=== PATIENT | male | born 1935 | race Caucasian/White ===

== ENCOUNTER 2016-06-16 13:01 | Outpatient (CLI) | payer MEDICARE, OTHER | END 2016-06-16 13:02 | disposition home or self-care (01) | DX: G47.33 Obstructive sleep apnea (adult) (pediatric) (principal) | CPT/HCPCS: 99213; G0463 ==

== ENCOUNTER 2016-12-23 18:25 | Emergency (ER) | payer MEDICARE, OTHER ==
[2016-12-23] MEDS: diphenhydrAMINE INJ 50 MG/ML VIAL IM STA (21:35)
[2016-12-23] MEDS ORDERED: diphenhydrAMINE INJ 50 MG/ML VIAL ONE (21:36)
--- NOTE | 2016-12-23 21:37 | ED Physician Documentation ---
PD HPI SKIN - Stated complaint Stated Complaint: JEREMIE HAND ITCH/SWELLING - Chief complaint Chief Complaint: Ext Problem - History obtained from History obtained from: Patient - History of Present Illness Timing - onset: How many days ago (7) Timing - details: Gradual onset, Still present Location: LUE, RLE Quality / character: Itchy, Raised, Vesicular Associated symptoms: No: Fever Similar symptoms before: Has not had sx before Recently seen: Not recently seen - Additional information Additional information: Patient is an 81 year old male presenting to the emergency department for bilateral puritic hand rash. Patient states that the symptoms have been going on for almost a week. patient states that he does work outside a lot but does not know what started the rash. patient states that he has follow up tomorrow but he came in today because the itching was so bad that he could not sleep. Review of Systems Constitutional: denies: Fever, Chills Eyes: denies: Discharge, Irritation Ears: denies: Ear pain Nose: denies: Rhinorrhea / runny nose, Congestion GI: denies: Abdominal Pain, Nausea, Vomiting Skin: reports: Rash Musculoskeletal: reports: Extremity swelling Neurologic: denies: Generalized weakness, Focal weakness, Numbness Immunocompromised: denies: Immunocompromised PD PAST MEDICAL HISTORY - Past Medical History Past Medical History: Yes Respiratory: CPAP use Neuro: Peripheral neuropathy - Past Surgical History Past Surgical History: No - Present Medications Home Medications: Ambulatory Orders Medication Instructions Recorded Confirmed Gabapentin 300 mg PO DAILY 12/23/16 12/23/16 - Allergies Allergies/Adverse Reactions: Allergies Allergy/AdvReac Type Severity Reaction Status Date / Time No Known Drug Allergies Allergy Verified 12/23/16 18:30 - Social History Does the pt smoke?: No Smoking Status: Never smoker Does the pt drink ETOH?: No Does the pt have substance abuse?: No - Immunizations Immunizations are current?: Yes - POLST Patient has POLST: No PD ED PE NORMAL - Vitals Vital signs reviewed: Yes - General General: Alert and oriented X 3, No acute distress - HEENT HEENT: Atraumatic, PERRL - Neck Neck: Supple, no meningeal sign - Cardiac Cardiac: RRR, No murmur - Respiratory Respiratory: No respiratory distress - Abdomen Abdomen: Soft - Extremities Extremities: Normal ROM s pain, No edema - Neuro Neuro: Alert and oriented X 3, No motor deficit, No sensory deficit, Normal speech - Psych Psych: Normal mood, Normal affect PD ED PE EXPANDED - Derm Derm: Rash, Papules, Vesicles (vesicles and papules on bilateral hands, no superimposed infection) Results - Vitals Vitals: Vital Signs - 24 hr 12/23/16 12/23/16 18:27 21:49 Temperature 36.8 C 36.4 C L Heart Rate 75 74 Respiratory 16 18 Rate Blood Pressure 153/85 H 148/90 H O2 Saturation 95 93 Oxygen O2 Source Room air PD MEDICAL DECISION MAKING - ED course Complexity details: reviewed old records, reviewed results, considered differential, d/w patient, d/w family ED course: Patient was seen and examined at bedside. a sample was taken from one of the lesions. Patient was treated with benadryl. Patient had follow up the next day and was stable for discharge with outpatient follow up. Departure - Departure Disposition: 01 Home, Self Care Clinical Impression: Dermatitis Condition: Good Instructions: Contact Dermatitis Follow-Up: primary,care provider [Other] - Tomorrow Comments: You should take benadryl as needed for the itching, you can also ice the hands as well. You should go to your appointment tomorrow for re-evaluation. You can return to the emergency department at any time if needed for new, worsening or uncontrollable symptoms. Discharge Date/Time: 12/23/16 21:49
[2016-12-23 21:51] VITALS: BP 148/90
== END 2016-12-23 21:49 | disposition home or self-care (01) ==
LOC: ED 18:25
DX: L30.9 Dermatitis, unspecified (principal); G62.9 Polyneuropathy, unspecified
CPT/HCPCS: 96372; 99283

== ENCOUNTER 2017-09-24 13:11 | Outpatient (CLI) | payer MEDICARE, OTHER | END 2017-09-24 13:12 | disposition home or self-care (01) | LOC: SC 13:11 | PROVIDERS: ATTEND Nurse Practitioner Family | DX: G47.33 Obstructive sleep apnea (adult) (pediatric) (principal) | CPT/HCPCS: 99213; G0463; 99212 ==

== ENCOUNTER 2018-10-05 13:40 | Outpatient (CLI) | payer MEDICARE, OTHER | END 2018-10-05 13:41 | disposition home or self-care (01) | LOC: SC 13:40 | PROVIDERS: ATTEND Nurse Practitioner Family | DX: G47.33 Obstructive sleep apnea (adult) (pediatric) (principal) | CPT/HCPCS: 99214; G0463; 99212 ==

== ENCOUNTER 2018-10-06 12:54 | Outpatient (CLI) | payer MEDICARE, OTHER ==
--- NOTE | 2018-10-06 15:56 | CT Report ---
Reason: INTERSTITIAL PULMONARY DISEASE, UNSPECIFIED Procedure Date: 10/06/2018 Accession Number: [id number] / [id number] Procedure: CT - CHEST WO CPT Code: FULL RESULT: EXAM: CT CHEST WITHOUT CONTRAST. EXAM DATE: 10/06/2018 02:05 PM. CLINICAL HISTORY: Interstitial pulmonary disease, unspecified. COMPARISONS: None. TECHNIQUE: Routine helical CT imaging was performed through the chest. IV contrast: None. Reconstructions: Coronal and sagittal. In accordance with CT protocol optimization, one or more of the following dose reduction techniques were utilized for this exam: automated exposure control, adjustment of mA and/or KV based on patient size, or use of iterative reconstructive technique. FINDINGS: Lungs/Pleura: There is peripheral basilar distribution of subpleural reticular interstitial thickening with traction bronchiectasis. A few patchy areas of consolidation also noted predominantly in the lower portion of the right upper lobe and lingula. Pleural thickening is seen near the fissures. There is no associated calcified pleural plaquing. No pleural effusion or pneumothorax. Mediastinum: The esophagus appears unremarkable. No adenopathy or masses. The heart and great vessels are normal. Bones: Unremarkable. Visualized Abdomen: Unremarkable. Other: None. IMPRESSION: Lower lung predominant peripheral interstitial thickening with traction bronchiectasis and some pleural thickening without consolidation. This pattern is nonspecific but overall compatible with the usual interstitial pneumonitis pattern. The differential diagnosis of which includes drug toxicity, rheumatoid arthritis, idiopathic pulmonary fibrosis, in this case etiologies such as asbestos exposure, Sjogren's syndrome and cryptogenic organizing pneumonia are felt somewhat less likely as pathognomonic features such as calcifications of the pleura, patulous esophagus and prominent consolidation respectively are absent. RADIA
[2018-10-06 16:08] LABS: RHEUMATOID FACTOR NEGATIVE (Negative)
[2018-10-08 11:46] LABS: DNA (DS) ANTIBODY 1 IU/mL
[2018-10-08 17:27] LABS: COMPLEMENT COMPONENT C3C 157 mg/dL; COMPLEMENT COMPONENT C4C 28 mg/dL
== END 2018-10-06 12:55 | disposition home or self-care (01) ==
LOC: DI 12:54
PROVIDERS: ATTEND Internal Medicine
DX: J84.9 Interstitial pulmonary disease, unspecified (principal); J47.9 Bronchiectasis, uncomplicated
CPT/HCPCS: 36415; 71250; 81599; 86160; 86200; 86225; 86430

== ENCOUNTER 2019-12-29 09:00 | Outpatient (CLI) | payer MEDICARE, OTHER | END 2019-12-29 09:01 | disposition home or self-care (01) | LOC: DI 09:00 | PROVIDERS: ATTEND Internal Medicine | DX: J84.9 Interstitial pulmonary disease, unspecified (principal) | CPT/HCPCS: 93306 ==

== ENCOUNTER 2020-01-11 13:05 | Outpatient (CLI) | payer MEDICARE, OTHER ==
[2020-01-11] MEDS ORDERED: ALBUTEROL 1 PUFF INH STA (15:47)
== END 2020-01-11 13:06 | disposition home or self-care (01) ==
LOC: RT 13:05
PROVIDERS: ATTEND Internal Medicine
DX: J84.9 Interstitial pulmonary disease, unspecified (principal)

== ENCOUNTER 2024-07-04 19:17 | Inpatient (IN) ==
--- NOTE | 2024-07-04 19:23 | ED Physician Documentation ---
PD HPI SYNCOPE Stated complaint Stated Complaint: SYNCOPE Chief complaint Chief Complaint: Cardiac Additional information Additional information: 88-year-old male has been here a couple times recently for increased shortness of breath and increased work of breathing. Last time he was here he was told he most likely has CHF that has been unofficially diagnosed he has got known cardiomegaly he was given IV Lasix prior to discharge. He is brought in via EMS for syncopal episode that happened while walking back from bathroom without oxygen. Is unclear if he was with or without oxygen when EMS arrived and he found him on 58% on room air. He has been on 10 to 20 L of supplemental oxygen at home. Patient does appear to be altered here in emergency department he is unable to tell me if he is having chest pain or shortness of breath. He was told to follow-up with PCP and cardiology outpatient for further evaluation at last ER admission. Patient's eventually came as well as his daughter his was there she says overall since patient has been home he has been doing worse he had an appoint with Dr. Márquez via telephone today Dr. Márquez was not able to evaluate him as it is very difficult to get patient in for appointments apparently he was started on Lasix today it does not like they have picked this up. It does sound like patient was actually on his oxygen at home but he has been requiring more oxygen than his normal baseline especially with ambulation and it is unclear how much oxygen he was on when he syncopized with oxygen on in his chair. said that he lost consciousness with his eyes open rolling behind his head for sever al seconds if not minutes patient says he has no recollection of this and no recollection of even going to the bathroom. [place] Coma Scale Assess Eye opening: Spontaneous Verbal response: Confused Motor response: Obeys Commands Total score: 14 Meds/Allgy Home Medications Ambulatory Orders Medication Instructions Recorded Confirmed gabapentin 300 mg capsule 300 mg PO DAILY 12/23/16 06/13/24 pirfenidone 267 mg capsule 267 mg PO DAILY 06/13/24 06/13/24 Allergies Allergies Allergy/AdvReac Type Severity Reaction Status Date / Time No Known Drug Allergies Allergy Verified 07/04/24 19:33 [facility] Medical History Medical History (Updated 07/04/24 @ 21:21 by Soham Sheppard DNP) History of cardiac murmur History of pulmonary fibrosis Social History Social History Smoking Status: Never smoker Relationship: Do you feel safe in your home environment?: Yes Suffered physical, verbal, emotional, or financial abuse?: No History of Abuse: No POLST Patient has POLST: No Exam Constitutional abnormal general appearance (disheveled), (chronically ill), (lethargic), (appears older than stated age) and (frail appearing), no apparent distress, abnormal body habitus (overweight), limitations noted (altered mental status) and alert HENMT normocephalic and head/scalp atraumatic Eyes PERRL Chest inspection of chest normal Respiratory Diminished breath sounds throughout. Cardiovascular normal heart rate noted and edema noted (3+ bilateral pitting edema to the nat ateral lower extremities) Diminished heart sounds Gastrointestinal abdomen normal to inspection Genitourinary no CVA tenderness Neurology no movement abnormality noted, no focal motor deficit noted, speech normal, coordination normal and no pronator drift noted Skin skin color normal and no rash Results Vitals Vitals: Vital Signs - 24 hr 07/04/24 19:29 07/04/24 19:29 07/04/24 19:33 Temperature 36.6 C Temperature Source Temporal Artery Scan Pulse Rate 63 Respiratory Rate 20 Blood Pressure 120/67 O2 Saturation 58 L Oxygen Delivery Method Nasal Cannula Non-Rebreather O2 Source Room air Oxygen Flow Rate 6 If not protocol: Oxygen Flow, liters/minute 10 Pain Intensity 0 07/04/24 19:36 07/04/24 19:50 07/04/24 20:03 Temperature Temperature Source Pulse Rate 79 80 Respiratory Rate 20 22 Blood Pressure 120/67 119/66 O2 Saturation 92 98 Oxygen Delivery Method O2 Source Nasal cannula Nasal cannula Oxygen Flow Rate If not protocol: Oxygen Flow, liters/minute 6 20 6 Pain Intensity 0 0 07/04/24 20:03 07/04/24 21:21 Temperature Temperature Source Pulse Rate 80 81 Respiratory Rate 26 H 24 Blood Pressure 119/66 115/61 O2 Saturation 99 96 Oxygen Delivery Method O2 Source HHFNC Venturi mask Oxygen Flow Rate If not protocol: Oxygen Flow, liters/minute 20 6 Pain Intensity 0 Oxygen O2 Source Venturi mask Oxygen Flow Rate 6 EKG (time done) 1921: EKG releavant findings:: EKG personally interpreted by author of this note. Relevant findings are: Rate: Rate (enter#) (79) Rhythm: Atrial flutter (With varied AV block) Chalmers: Normal QRS: RBBB Ischemia: Normal ST segments Compare to prior EKG: Unchanged from prior EKG Computer interpretation: Agree with computer Labs Labs: Laboratory Tests 07/04/24 07/04/24 19:30 19:36 WBC 11.0 H RBC 3.85 L Hgb 12.2 L Hct 41.5 L MCV 107.8 H MCH 31.7 H MCHC 29.4 L RDW 14.6 Plt Count 216 MPV 11.1 Neut # (Auto) 5.3 Lymph # (Auto) 4.6 H Boundary # (Auto) 0.7 Eos # (Auto) 0.4 Baso # (Auto) 0.0 Absolute Nucleated RBC 0.00 Nucleated RBC % 0.0 PT 15.4 H INR 1.4 H VBG pH 7.313 VBG pCO2 74.8 H VBG pO2 34.0 VBG HCO3 38.3 H VBG Total CO2 40.6 H VBG O2 Saturation 51.0 L VBG Base Excess 11.9 H Sodium 145 Potassium 4.3 Chloride 103 Carbon Dioxide 35 H Anion Gap 7.0 BUN 23 H Creatinine 1.2 Estimated GFR (MDRD) 57 L Glucose 186 H Calcium 9.3 Total Bilirubin 0.5 AST 16 ALT 14 Alkaline Phosphatase 75 Troponin I High Sens 30.3 H* B-Natriuretic Peptide 260 H Total Protein 6.1 L Albumin 3.8 Globulin 2.3 Albumin/Globulin Ratio 1.7 Lipase 16 Rads (name of study) Chest x-ray: Relevant Findings:: Final report received and EMP independent i nterpretation of test Interpretation: IMPRESSION: Compared to prior radiograph 06/28/2024, increased bilateral lung disease. Small bilateral pleural effusions persist. CT angio chest: Relevant Findings:: Final report received and EMP independent interpretation of test Interpretation: IMPRESSION: 1.No CT evidence of pulmonary embolism to the interlobar level. 2.Pulmonary findings, which can be seen with pulmonary fibrosis-usual i nterstitial pneumonia pattern. The presence of thoracic lymphadenopathy suggests underlying viral/atypical pneumonia. 3.Cardiomegaly with CT signs of right heart strain. 4.Dilated main pulmonary artery, suggestive of pulmonary arterial hypertension. 5.Small bilateral pleural effusions. PD Medical Decision Making ED course Complexity details: reviewed old records, reviewed results, re-evaluated patient, d/w patient, d/w family and d/w client service consultant ED course: 88-year-old male presents emerged department via EMS for acute hypoxia and respiratory failure. Differentials include but not limited to, worsening pulmonary fibrosis, pulmonary embolism, pneumonia, worsening CHF exacerbation. Labs are complete for further evaluation mild leukocytosis, WBC 11.0 BUN slightly elevated 23, GFR 57, troponin slightly elevated at 30.3 no history of troponins collected in the past this is most likely related to demand ischemia patient does not have any chest pain although he does endorse an ongoing shortness of breath. BNP trending down to 260. Chest x-ray was complete and reveals increased bilateral lung disease with small bilateral pleural effusions. To rule out the possibility of a pulmonary embolism and a CT angio chest was also complete for further evaluation no PE vi sualized he does appear to have ongoing cardiomegaly with CT signs of right heart strain, dilated main pulmonary artery suggestive of pulmonary arterial hypertension, small bilateral pleural effusions and pulmonary findings likely related to pulmonary fibrosis with typical interstitial pneumonia pattern there is also presence of thoracic lymphadenopathy suggestive of underlying atypical pneumonia versus viral pneumonia. He is afebrile here. I spoke in great length with patient's daughter and as well as the patient about the findings of the CT and concerns for worsening heart failure. At this point in time patient is unable to make his pulmonology appointments in [place] Due to his increased oxygen needs. Family says that with his worsening heart failure they do not believe that patient will make any of his cardiology outpatient appointments for further evaluation and workup. We talked about possibly transferring patient to another hospital where there is cardiology available but they said that they would do not want to leave and they are not interested in a cardiology referral at this point in time they are hoping to just try and get some fluid off of his lungs if there is some pneumonia possibly treating for this getting patient stabilized. Patient patient's family would like to avoid transfer at all cost and understand staying here that we do not have cardiology. Spoke with on-call hospitalist, Jaret Mukherjee who understands patient is not wanting or willing to be transferred lives with daughter. Plan is to admit patient for diuresis possible pneumonia waiting for procalcitonin levels to get back And possible echocardiogram. Discharge Plan Discharge Patient Disposition: 66 [facility] DC/Xfer Condition: Fair Clinical Impression: Syncopal episodes, CHF (congestive heart failure), Pulmonary fibrosis, Pleural effusion Prescriptions: No Action gabapentin 300 MG capsule 300 mg PO DAILY pirfenidone 267 mg capsule 267 mg PO DAILY Print Language: Khmer
[2024-07-04] MEDS ORDERED: iohexoL-300 100 ML VIAL ONE (19:34)
[2024-07-04 19:40] LABS: BASOPHILS % (AUTO) 0.3 %; EOSINOPHILS # (AUTO) 0.4 10^3/uL (0.0-0.7); EOSINOPHILS % (AUTO) 3.2 %; HCT - HEMATOCRIT 41.5 % (42.0-52.0); HGB - HEMOGLOBIN 12.2 g/dL (14.0-18.0); LYMPHOCYTES # (AUTO) 4.6 10^3/uL (1.5-3.5); LYMPHOCYTES % (AUTO) 42.1 %; MEAN CORPUSCULAR HEMOGLOBIN 31.7 pg (27.0-31.0); MEAN CORPUSCULAR HGB CONC 29.4 g/dL (32.0-36.0); MEAN CORPUSCULAR VOLUME 107.8 fL (80.0-94.0); MEAN PLATELET VOLUME 11.1 fL (7.4-11.4); MONOCYTES # (AUTO) 0.7 10^3/uL (0.0-1.0); MONOCYTES % (AUTO) 6.3 %; NEUTROPHILS # (AUTO) 5.3 10^3/uL (1.5-6.6); NEUTROPHILS % (AUTO) 47.7 %; PLT - PLATELET COUNT 216 10^3/uL (130-450); RED BLOOD COUNT 3.85 10^6/uL (4.70-6.10); RED CELL DISTRIBUTION WIDTH 14.6 % (12.0-15.0)
[2024-07-04 19:42] LABS: VBG BASE EXCESS 11.9 mmol/L (-2 - +2); VBG PCO2 74.8 mmHg (41-51); VBG PH 7.313 (7.31-7.41); VBG TOTAL CO2 40.6 mmol/L (24-29)
[2024-07-04 19:46] LABS: INR 1.4 (0.8-1.2); PT - PROTHROMBIN TIME 15.4 secs (9.9-12.6)
--- NOTE | 2024-07-04 19:51 | XRAY Report ---
PROCEDURE: XR Chest 1V INDICATIONS: Chest Pain TECHNIQUE: One view of the chest was acquired. COMPARISON: Chest radiograph 06/28/2024, 1 presents with a left. FINDINGS: Surgical changes and devices: None. Lungs and pleura: No pneumothorax. Small bilateral pleural effusions. Compared to prior radiograph , there is slightly increased diffuse lung disease. Mediastinum: Mediastinal contours appear normal. Heart size is normal. Bones and chest wall: No suspicious bony lesions. Overlying soft tissues appear unremarkable. IMPRESSION: Compared to prior radiograph 06/28/2024, increased bilateral lung disease. Small bilateral pleural eff usions persist. Reviewed by: Trina Fernandes MD, PhD on 07/04/2024 7:50 PM PST Approved by: Trina Fernandes MD, PhD on 07/04/2024 7:50 PM PST Station ID: [id number]
[2024-07-04 20:01] LABS: ALBUMIN 3.8 g/dL (3.2-5.5); ALBUMIN/GLOBULIN RATIO 1.7 (1.0-2.2); BILIRUBIN,TOTAL 0.5 mg/dL (0.2-1.0); CALCIUM 9.3 mg/dL (8.5-10.3); CREATININE 1.2 mg/dL (0.6-1.3); POTASSIUM 4.3 mmol/L (3.5-4.5); TOTAL PROTEIN 6.1 g/dL (6.4-8.9)
[2024-07-04] MEDS: FUROSEMIDE 40 MG/4 ML VIAL IVP STA (20:12)
[2024-07-04] MEDS: iohexoL-300 100 ML VIAL IVP ONE (20:39)
--- NOTE | 2024-07-04 20:59 | CT Report ---
PROCEDURE: CT Angio Chest INDICATIONS: hypoxic, syncope CONTRAST: 80 ML OMNI TECHNIQUE: After the administration of intravenous contrast, 2 mm axial images were acquired from the pulmonary apices to the posterior costophrenic angles during the arterial phase. In addition, 1 mm lung kernel and 5 mm soft tissue kernel reconstructions were performed. 3-dimensional coronal oblique maximum int ensity projection (MIP) reformats, 8 mm axial MIP, and 5 mm coronal and sagittal MPR reformats were t hen performed through the thorax. For radiation dose reduction, the following was used: automated exp osure control, adjustment of mA and/or kV according to patient size. COMPARISON: Chest x-ray 06/28/2024, CT chest without contrast 10/06/2018 FINDINGS: Image quality: Excellent. Thyroid Gland: Within normal limits. Cardiac: Mild cardiomegaly. No pericardial effusion. RV: LV ratio of 1.3. Mild bowing of the interven tricular septum. Reflux of contrast into the proximal hepatic veins. Aorta: Thoracic aortic diameter within normal limits at 3.0 cm (4/61).. Pulmonary Artery: Main pulmonary artery diameter mildly dilated at 3.3 cm (/61). No central filling defect in the pulmonary arteries to the interlobar level; further distal evaluation is limited by sub optimal arterial opacification, venous opacification, and respiratory motion artifact. Lungs: Multiple areas of groundglass opacification and mosaic attenuation with superimposed interlobu lar septal thickening, subpleural reticulation, and bibasilar honeycombing () Pleura: Small bilateral pleural effusions. No pneumothorax. Airways: The trachea and mainstem bronchi are patent. Traction bronchiectasis of the bilateral lower lobe bronchials. Lymph Nodes: Extensive mediastinal bilateral hilar lymphadenopathy, the largest of which is a 2.2 cm short axis left hilar node (53). Esophagus: Within normal limits. Bones: No acute osseous abnormality. Diffuse hepatic skeletal hyperostosis of the thoracic spine (). Upper Abdomen: Partially identified small volume ascites. Soft tissues: No acute abnormality. IMPRESSION: 1.No CT evidence of pulmonary embolism to the interlobar level. 2.Pulmonary findings, which can be seen with pulmonary fibrosis-usual interstitial pneumonia pattern. The presence of thoracic lymphadenopathy suggests underlying viral/atypical pneumonia. 3.Cardiomegaly with CT signs of right heart strain. 4.Dilated main pulmonary artery, suggestive of pulmonary arterial hypertension. 5.Small bilateral pleural effusions. Reviewed by: Blaze Rodriguez MD on 07/04/2024 8:58 PM PST Approved by: Blaze Rodriguez MD on 07/04/2024 8:58 PM PST Station ID: [id number]
[2024-07-04 21:37] LABS: BILIRUBIN,URINE NEGATIVE (NEGATIVE); GLUCOSE, URINE (UA) NEGATIVE (NEGATIVE); KETONES,URINE (UA) NEGATIVE (NEGATIVE); LEUKOCYTE ESTERASE, URINE NEGATIVE (NEGATIVE); NITRITE,URINE NEGATIVE (NEGATIVE); OCCULT BLOOD,URINE NEGATIVE (NEGATIVE); PH,URINE 5.5 PH (5.0-7.5); PROTEIN,URINE TRACE mg/dL (NEGATIVE); UROBILINOGEN,URINE 0.2 (NORMAL) E.U./dL (NORMAL)
[2024-07-04 21:38] LABS: CLARITY,URINE CLEAR (CLEAR)
--- NOTE | 2024-07-04 22:13 | HISTORY & PHYSICAL EXAMINATION ---
Chief Complaint Chief Complaint Chief Complaint: Dyspnea History of Present Illness Admitted From Admitted From:: Home with History Obtained From History obtained from: Interview with patient, , daughter History of Present Illness HPI Comment/Other: 88-year-old male history of pulmonary fibrosis on 10 L to 20 L of oxygen at home came in with dyspnea. He experienced a syncopal episode after walking back from the bathroom. He was found to be 58% on room air on EMS arrival. He has been experiencing increased swelling in his legs for the past week. He denies fever, chills, chest pain. In the ER, he was noted to have a troponin of 30. CTA chest was performed which showed pulmonary fibrosis with possible superimposed pneumonia as well as cardiomegaly with signs of right heart strain, possible pulmonary artery hypertension, bilateral pleural effusions. He is aware of his poor prognosis, and patient centered discussion was held between the patient and ER physician regarding transfer to higher level of care. The decision was made to not transfer him for cardiology eval, and that he would like to be managed as best as possible at this location. Hospitalist was contacted for heart failure exacerbation with dyspnea as well as for syncope Meds/Allgy Home Medications Ambulatory Orders Medication Instructions Recorded Confirmed gabapentin 300 mg capsule 300 mg PO DAILY 12/23/16 06/13/24 pirfenidone 267 mg capsule 267 mg PO DAILY 06/13/24 06/13/24 Allergies Allergies Allergy/AdvReac Type Severity Reaction Status Date / Time No Known Drug Allergies Allergy Verified 07/04/24 19:33 [facility] Medical History Medical History (Updated 07/04/24 @ 21:21 by Soham Sheppard DNP) History of cardiac murmur History of pulmonary fibrosis Social History Social History Smoking Status: Never smoker Relationship: Do you feel safe in your home environment?: Yes Suffered physical, verbal, emotional, or financial abuse?: No History of Abuse: No POLST Patient has POLST: No Review of Systems Status of ROS: 10 or more systems reviewed and unremarkable except as noted in history and below Constitutional Denies: Fever or Chills Cardiovascular Reports: swelling of feet/ankles and shortness of breath with exertion; Denies: Irregular heart rate, chest pain or palpitations Respiratory Reports: Shortness of breath Exam Constitutional Chronically ill-appearing elderly male with conversational dyspnea HENDC normocephalic and head/scalp atraumatic Eyes PERRL Neck/C-Spine visual inspection normal Lymph no lymphadenopathy noted Chest inspection of chest normal Respiratory breath sounds equal bilaterally and rales noted Cardiovascular normal heart rate noted Gastrointestinal abdomen normal to inspection Extremities 3+ pitting edema BLE Neurology GCS 15 Psychiatry oriented x3 Skin skin color normal Conclusion/Plan Problem List (1) CHF (congestive heart failure): Plan: Meets observation criteria because of dyspnea as well as syncopal episode I have ordered an echocardiogram He received 40 mg Lasix IV in the ER I have ordered 40 mg Lasix IV daily Intake and output Procalcitonin negative, bacterial pneumonia unlikely He has had no infectious symptoms, but I will go ahead and order respiratory viral panel Will consider GDMT after echo has resulted, at this point his blood pressure is too borderline low to consider ALDAIR inhibitor/ARB or beta-sharron (2) Pulmonary fibrosis: Plan: Has longstanding history of this. He wears 10 L O2 at home at rest. When he ambulates, he has been putting a second nasal cannula in his nose also at 10 L for a total of 20 L O2 with ambulation. There have been multiple conversations regarding hospice with this patient, he is just now beginning to warm to the idea of hospice care. I will consult hospice in the morning for an informational visit Imaging shows suspicion for superimposed viral versus atypical pneumonia. Procalcitonin is negative. I have ordered a viral panel and will order Decadron 6 mg p.o. daily and a 3-day course of azithromycin 500 mg p.o. daily (3) Syncopal episodes: Plan: Syncopal episodes are likely secondary to hypoxic episode as family thinks he may have had his oxygen off when this happened. Regardless, I am working up this syncope with telemetry and with an echocardiogram has described above Plan Placed in observation DNR His is his surrogate decision maker Lab Results 07/04/24 19:30 07/04/24 19:30 Diagnostic Imaging Results Diagnostic Imaging Results: positive Final report reviewed Diagnostic Imaging Results Comments: CT as described above Core Measures Anticipated LOS I expect patient to be DC'd or transferred within 96 hours.: Yes DVT/VTE - Prophylaxis VTE/DVT Prophylaxis med ordered at admit?: Yes
[2024-07-04] MEDS ORDERED: ACETAMINOPHEN 325 MG TABLET PO PRN (22:45)
[2024-07-04] MEDS ORDERED: ONDANSETRON ODT 4 MG TABLET TL PRN (22:45)
[2024-07-04] MEDS ORDERED: ONDANSETRON 4 MG/2 ML VIAL IVP PRN (22:45)
[2024-07-04] MEDS ORDERED: HYDROcod/ACETAM 10 MG/325 MG TABLET PO PRN (22:45)
[2024-07-04] MEDS ORDERED: SODIUM CHLORIDE FLUSH 0.9% 10 ML SYRINGE IVP PRN (22:45)
[2024-07-04] MEDS: dexAMETHasone 4 MG TABLET PO SCH (23:55)
[2024-07-04] MEDS: AZITHROMYCIN 250 MG TABLET PO SCH (23:55)
[2024-07-05] MEDS: GABAPENTIN 300 MG CAPSULE PO SCH ×3 (01:33→23:02)
[2024-07-05 01:38] LABS: B. PARAPERTUSSIS- RESP PCR PAN NOT DETECTED; B. PERTUSSIS- RESP PCR PANEL NOT DETECTED; C. PNEUMONIAE- RESP PCR PANEL NOT DETECTED; CORONAVIRUS 229E-RESP PCR NOT DETECTED; CORONAVIRUS HKU1-RESP PCR NOT DETECTED; CORONAVIRUS NL63-RESP PCR NOT DETECTED; CORONAVIRUS OC43-RESP PCR NOT DETECTED; HUMAN METAPNEUMOVIRUS NOT DETECTED; INFLUENZA A- RESP PCR PANEL NOT DETECTED; INFLUENZA B - RESP PCR PANEL NOT DETECTED; M. PNEUMONIAE- RESP PCR PANEL NOT DETECTED; PARAINFLUENZA VIRUS 1 NOT DETECTED; PARAINFLUENZA VIRUS 2 NOT DETECTED; PARAINFLUENZA VIRUS 4 NOT DETECTED; RHINOVIRUS/ENTEROVIRUS NOT DETECTED; RSV- RESP PCR PANEL NOT DETECTED; SARS-CoV-2 -RESP PCR PANEL NOT DETECTED
[2024-07-05] MEDS: SODIUM CHLORIDE FLUSH 0.9% 10 ML SYRINGE IVP SCH (01:38)
[2024-07-05 04:34] LABS: BASOPHILS % (AUTO) 0.1 %; HCT - HEMATOCRIT 38.8 % (42.0-52.0); HGB - HEMOGLOBIN 11.4 g/dL (14.0-18.0); LYMPHOCYTES # (AUTO) 0.9 10^3/uL (1.5-3.5); LYMPHOCYTES % (AUTO) 11.7 %; MEAN CORPUSCULAR HGB CONC 29.4 g/dL (32.0-36.0); MEAN CORPUSCULAR VOLUME 105.4 fL (80.0-94.0); MEAN PLATELET VOLUME 11.3 fL (7.4-11.4); MONOCYTES # (AUTO) 0.2 10^3/uL (0.0-1.0); MONOCYTES % (AUTO) 2.4 %; NEUTROPHILS # (AUTO) 6.7 10^3/uL (1.5-6.6); NEUTROPHILS % (AUTO) 85.4 %; PLT - PLATELET COUNT 174 10^3/uL (130-450); RED BLOOD COUNT 3.68 10^6/uL (4.70-6.10); RED CELL DISTRIBUTION WIDTH 14.6 % (12.0-15.0); WHITE BLOOD COUNT 7.8 x10^3/uL (4.8-10.8)
[2024-07-05 04:49] LABS: CALCIUM 9.1 mg/dL (8.5-10.3); CREATININE 1.3 mg/dL (0.6-1.3); POTASSIUM 4.4 mmol/L (3.5-4.5)
[2024-07-05] MEDS: ENOXAPARIN 40 MG/0.4 ML SYRINGE SUBQ SCH (08:21)
[2024-07-05] MEDS: FUROSEMIDE 40 MG/4 ML VIAL IVP SCH (08:21)
--- NOTE | 2024-07-05 14:27 | PHARMACY PROGRESS NOTE ---
Best Possible Medication History Admit Date and Time: 07/04/242205 Home Medications Medication Instructions Recorded Confirmed Type gabapentin 300 mg capsule 900 mg PO DAILY 12/23/16 07/05/24 History pirfenidone 267 mg capsule 2,403 mg PO DAILY 06/13/24 07/05/24 History bisacodyl 1 tab PO PRN PRN constipation 07/04/24 07/05/24 History omeprazole 20 mg capsule,delayed 20 mg PO DAILY PRN reflux 07/04/24 07/04/24 History release prednisone 20 mg tablet 20 mg PO ONCE PRN shortness of 07/04/24 07/04/24 History breath Processed by: Pharmacy Medications reviewed in ED?: Yes Medication History completed: Yes Patient Interview: Completed Secondary Source(s): Pharmacy records and Insurance records [facility] Statement: As the person ultimately responsible for medication therapy, providers are able to order a medication from an existing home medication list in [facility] via the "Reconcile Routine" prior to Confirmation of that medication by office support. Such practice is discouraged except when the physician, in their clinical judgment, deems that a medical need exists for a medication without regard to previous use.
--- NOTE | 2024-07-05 15:25 | CONSULTATION NOTE ---
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 He was brought into the ED last night for recurrent syncope. EMS found him w/O2 off and sats of 58%. He was encephalopathic as well. CTPA showed no PE, findings c/w UIP pattern, thoracic lymphadenopathy suggesting viral/atypical pna, R heart strain, dilated main pulmonary artery suggestive of PAH, and small bilateral pulmonary effusions. He required 20LPM high-flow O2 to maintain sats above 90%. WBC was 11. BMP notable for glc of 186, bicarb of 35. Respiratory viral panel was negative. UA was negative. Nasal MRSA screen was negative. He was started on dex, azithro, and IV lasix 40mg. He has diuresed 1450 since admission. Pt and dtr note he has had "no appetite". He uses his 10L concentrator and adds 2-5L via his K tank. PMH: Severe ILIANA, previously on CPAP O/w as above Soc Hx: x 51 yrs. 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 Reviewed his Medicare hospice benefit and explained [place] hospice agencies [place], [facility] and [facility]. His dtr is clearly in favor of hospice. Pt states he feels he has "no choice" but hospice. Reviewed w/him alternatives: Given his O2 need, he is unlikely to be able to dc to SNF, but if his O2 need goes down significantly (he reports prior to his most recent exacerbation, he could tolerate 5-10LPM at rest), he *might* be able to be considered for a SNF stay, particularly if some of his increased O2 need is related to underlying pna (which is being treated w/azithro) or volume overload (for which he is being diuresed. Echo is pending and was performed today). He could dc home w/HH. He would need to dc w/plans to have 2 concentrators at home. He did get a bit perseverative about this and couldn't seem to understand this. His remarked that this is highly unusual for him. However, she reported he is much clearer than he was last night. Advised that he does not have to make a decision today and he and his family should discuss options and let the hospital team know when he has made his decision. 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 He expressed understanding. He and his family had no further questions. Will follow peripherally and f/u as needed.
[2024-07-05] MEDS ORDERED: bisacodyL 5 MG TABLET PO PRN (17:19)
--- NOTE | 2024-07-05 18:23 | PROVIDER PROGRESS NOTE ---
Assessment/Plan Problem List (1) Syncopal episodes: Qualifiers: Syncope type: unspecified Qualified Code(s): R55 - Syncope and collapse Assessment/Plan: * Patient likely had syncopal event secondary to acute exacerbation of chronic hypoxia * Pt nearly baseline at this time * Will request PT/OT eval to assess pt's current ambulatory status and safety to d/c home (2) CHF (congestive heart failure): Qualifiers: Heart failure type: unspecified Heart failure chronicity: unspecified Qualified Code(s): I50.9 - Heart failure, unspecified Assessment/Plan: * Suspected CHF based on CXR with pleural effusions * No prior echocardiogram available to review, echo ordered on 07/04/2024 pending report (3) Pulmonary fibrosis: Assessment/Plan: * Chronic respiratory failure with hypoxia chronically dependent on 10 to 20 L of oxygen depending on ambulatory versus at rest * Patient patient's progressive disease process, hospice was consulted and patient has now decided he would like to proceed with hospice * Meanwhile, cont supportive oxygen and home med (4) GERD (gastroesophageal reflux disease): Assessment/Plan: * Stable * Cont PPI Current Meds Current Meds: Current Medications Generic Name Dose Route Start Last Admin Trade Name Freq PRN Reason Stop Dose Admin Acetaminophen 650 mg 07/04/24 22:45 Acetaminophen 325 Mg Tablet PO Q4HR PRN Pain 1 to 4, or Fever Hydrocodone Bitart/Acetaminophen 1 tab 07/04/24 22:45 Hydrocod/Acetam 10 Mg/325 Mg Tablet PO Q4HR PRN Pain 8 to 10 Azithromycin 500 mg 07/04/24 22:45 07/05/24 08:21 Azithromycin 250 Mg Tablet PO 07/06/24 09:01 500 mg DAILY SARATH Administration Bisacodyl 5 mg 07/05/24 17:19 Bisacodyl 5 Mg Tablet PO DAILY PRN constipation Dexamethasone 6 mg 07/04/24 22:45 07/05/24 17:04 Dexamethasone 4 Mg Tablet PO 6 mg BIDWM SARATH Administration Enoxaparin Sodium 40 mg 07/05/24 09:00 07/05/24 08:21 Enoxaparin 40 Mg/0.4 Ml Syringe SUBQ 40 mg DAILY SARATH Administration Furosemide 40 mg 07/05/24 09:00 07/05/24 08:21 Furosemide 40 Mg/4 Ml Vial IVP 40 mg DAILY SARATH Administration Gabapentin 300 mg 07/05/24 23:00 Gabapentin 300 Mg Capsule PO 230 [facility] Gabapentin 600 mg 07/05/24 20:00 Gabapentin 300 Mg Capsule PO 1999 [facility] Ondansetron HCl 4 mg 07/04/24 22:45 Ondansetron Odt 4 Mg Tablet TL Q6HR PRN Nausea / Vomiting Ondansetron HCl 4 mg 07/04/24 22:45 Ondansetron 4 Mg/2 Ml Vial IVP Q6HR PRN Nausea / Vomiting Pantoprazole Sodium 40 mg 07/06/24 07:00 Pantoprazole 40 Mg Tablet PO QDAC [facility] Patient Own Med ( 3 each 07/06/24 09:00 Pirfenidone 267mg) PO TID [facility] Sodium Chloride 10 ml 07/04/24 22:45 Sodium Chloride Flush 0.9% 10 Ml Syringe IVP PRN PRN NEEDED PER PROVIDER ORDERS Sodium Chloride 10 ml 07/05/24 01:00 07/05/24 17:05 Sodium Chloride Flush 0.9% 10 Ml Syringe IVP 10 ml 0100,0900,1700 [facility] Administration Lab Result Lab results reviewed: Yes 07/05/24 04:10 07/05/24 04:10 EKG Results EKG Interpreted Independently: Yes Diagnostic Imaging Results Diagnostic Imaging Results: Final report reviewed Additional Planning Condition/Complexity: Stable My Orders: My Active Orders 07/05/24 17:19 bisacodyL [Dulcolax] 5 mg PO DAILY PRN 07/05/24 20:00 Gabapentin [Neurontin] 600 mg PO 199907/05/24 23:00 Gabapentin [Neurontin] 300 mg PO 0 07/06/24 07:00 Pantoprazole [Protonix] 40 mg PO QDAC 07/06/24 09:00 Patient Own Med [Patient Own Medication] 3 each PO TID Consult/Specialty: Other (Hospice) Plan Discussed with:: Patient, Family (Daughter) and Spouse Subjective Subjective Patient Reports: Feeling Better and Shortness of Breath Objective Vital Signs: Vital Signs - 24 hr 07/04/24 19:29 07/04/24 19:29 07/04/24 19:33 Temperature 36.6 C Temperature Source Temporal Artery Scan Pulse Rate 63 Pulse Rate [Monitoring electrodes] Respiratory Rate 20 Blood Pressure 120/67 Blood Pressure [Left Brachial artery] Blood Pressure [Right Brachial artery] O2 Saturation 58 L Oxygen Delivery Method Nasal Cannula Non-Rebreather O2 Source Room air Oxygen Flow Rate 6 If not protocol: Oxygen Flow, liters/minute 10 FiO2 (%) Sedation scale Pain Intensity 0 07/04/24 19:36 07/04/24 19:50 07/04/24 20:03 Temperature Temperature Source Pulse Rate 79 80 Pulse Rate [Monitoring electrodes] Respiratory Rate 20 22 Blood Pressure 120/67 119/66 Blood Pressure [Left Brachial artery] Blood Pressure [Right Brachial artery] O2 Saturation 92 98 Oxygen Delivery Method O2 Source Nasal cannula Nasal cannula Oxygen Flow Rate If not protocol: Oxygen Flow, liters/minute 6 20 6 FiO2 (%) Sedation scale Pain Intensity 0 0 07/04/24 20:03 07/04/24 21:00 07/04/24 21:21 Temperature Temperature Source Pulse Rate 80 96 81 Pulse Rate [Monitoring electrodes] Respiratory Rate 26 H 24 24 Blood Pressure 119/66 122/69 115/61 Blood Pressure [Left Brachial artery] Blood Pressure [Right Brachial artery] O2 Saturation 99 100 96 Oxygen Delivery Method O2 Source [facility] H[facility]NC Venturi mask Oxygen Flow Rate If not protocol: Oxygen Flow, liters/minute 20 20 6 FiO2 (%) Sedation scale Pain Intensity 0 07/04/24 22:01 07/04/24 22:14 07/04/24 23:00 Temperature 37.1 C Temperature Source Oral Pulse Rate 83 Pulse Rate [Monitoring electrodes] 64 Respiratory Rate 22 29 H Blood Pressure 104/57 L Blood Pressure [Left Brachial artery] Blood Pressure [Right Brachial artery] 112/75 O2 Saturation 98 100 Oxygen Delivery Method O2 Source Venturi mask HHFNC Oxygen Flow Rate If not protocol: Oxygen Flow, liters/minute 20 6 20 FiO2 (%) 93 Sedation scale 0-Fully awake Pain Intensity 0 07/04/24 23:32 07/05/24 00:00 07/05/24 00:55 Temperature Temperature Source Pulse Rate Pulse Rate [Monitoring electrodes] 60 Respiratory Rate 18 Blood Pressure Blood Pressure [Left Brachial artery] Blood Pressure [Right Brachial artery] 95/59 L O2 Saturation 99 Oxygen Delivery Method O2 Source [facility]HFNC Oxygen Flow Rate If not protocol: Oxygen Flow, liters/minute 20 20 18 FiO2 (%) 93 Sedation scale 0-Fully awake Pain Intensity 07/05/24 01:00 07/05/24 02:00 07/05/24 02:34 Temperature Temperature Source Pulse Rate Pulse Rate [Monitoring electrodes] 61 67 Respiratory Rate 16 21 Blood Pressure Blood Pressure [Left Brachial artery] Blood Pressure [Right Brachial artery] 109/70 117/62 O2 Saturation 100 97 Oxygen Delivery Method [facility] Oxygen Flow Rate If not protocol: Oxygen Flow, liters/minute 18 18 16 FiO2 (%) 94 94 Sedation scale 0-Fully awake 0-Fully awake Pain Intensity 07/05/24 03:00 07/05/24 04:00 07/05/24 05:00 Temperature 37.0 C Temperature Source Oral Pulse Rate Pulse Rate [Monitoring electrodes] 73 69 88 Respiratory Rate 19 26 H 16 Blood Pressure Blood Pressure [Left Brachial artery] 90/69 Blood Pressure [Right Brachial artery] 121/86 102/64 O2 Saturation 98 95 96 Oxygen Delivery Method [facility] Room air Oxygen Flow Rate If not protocol: Oxygen Flow, liters/minute 16 16 FiO2 (%) 95 95 Sedation scale 1-Arouses easily 1-Arouses easily 1-Arouses easily Pain Intensity 0 07/05/24 06:00 07/05/24 07:00 07/05/24 08:00 Temperature 36.7 C Temperature Source Oral Pulse Rate Pulse Rate [Monitoring electrodes] 80 80 80 Respiratory Rate 17 18 20 Blood Pressure Blood Pressure [Left Brachial artery] 131/69 H 113/73 141/72 H Blood Pressure [Right Brachial artery] O2 Saturation 96 95 97 Oxygen Delivery Method [facility] Source [facility] Oxygen Flow Rate If not protocol: Oxygen Flow, liters/minute 16 16 16 FiO2 (%) 95 96 95 Sedation scale 1-Arouses easily 1-Arouses easily 0-Fully awake Pain Intensity 07/05/24 08:00 07/05/24 09:00 07/05/24 09:15 Temperature Temperature Source Pulse Rate Pulse Rate [Monitoring electrodes] 81 Respiratory Rate 20 Blood Pressure Blood Pressure [Left Brachial artery] 121/84 Blood Pressure [Right Brachial artery] O2 Saturation 99 90 L Oxygen Delivery Method [facility] Oxygen Flow Rate If not protocol: Oxygen Flow, liters/minute 15 16 10 FiO2 (%) 95 65 Sedation scale Pain Intensity 07/05/24 10:00 07/05/24 11:00 07/05/24 11:31 Temperature Temperature Source Pulse Rate Pulse Rate [Monitoring electrodes] 82 72 Respiratory Rate 18 34 H Blood Pressure Blood Pressure [Left Brachial artery] 106/68 135/85 H Blood Pressure [Right Brachial artery] O2 Saturation 95 92 95 Oxygen Delivery Method O2 Source [facility]NC [facility]NC Oxygen Flow Rate If not protocol: Oxygen Flow, liters/minute 10 10 20 FiO2 (%) 65 65 60 Sedation scale 0-Fully awake Pain Intensity 07/05/24 12:00 07/05/24 13:00 07/05/24 14:00 Temperature 36.6 C Temperature Source Oral Pulse Rate Pulse Rate [Monitoring electrodes] 68 71 60 Respiratory Rate 22 23 20 Blood Pressure Blood Pressure [Left Brachial artery] 112/79 102/68 113/66 Blood Pressure [Right Brachial artery] O2 Saturation 93 93 94 Oxygen Delivery Method O2 Source FNC FNC FNC Oxygen Flow Rate If not protocol: Oxygen Flow, liters/minute 20 20 20 FiO2 (%) 60 60 60 Sedation scale 0-Fully awake 0-Fully awake Pain Intensity 0 0 07/05/24 15:00 07/05/24 15:52 07/05/24 16:00 Temperature 37.0 C Temperature Source Oral Pulse Rate Pulse Rate [Monitoring electrodes] 61 80 Respiratory Rate 26 H 27 H Blood Pressure Blood Pressure [Left Brachial artery] 129/77 114/79 Blood Pressure [Right Brachial artery] O2 Saturation 93 95 Oxygen Delivery Method O2 Source FNC FNC Oxygen Flow Rate If not protocol: Oxygen Flow, liters/minute 20 20 FiO2 (%) 60 60 Sedation scale Pain Intensity 07/05/24 17:00 07/05/24 18:00 Temperature Temperature Source Pulse Rate Pulse Rate [Monitoring electrodes] 81 81 Respiratory Rate 22 17 Blood Pressure Blood Pressure [Left Brachial artery] 120/80 117/75 Blood Pressure [Right Brachial artery] O2 Saturation 94 97 Oxygen Delivery Method O2 Source FNC FNC Oxygen Flow Rate If not protocol: Oxygen Flow, liters/minute 20 20 FiO2 (%) 60 60 Sedation scale 0-Fully awake Pain Intensity 0 Oxygen O2 Source [facility]HFNC Oxygen Flow Rate 6 I&O (Last 24 Hrs): Intake and Output Totals x24h 07/03/24 07/04/24 07/05/24 23:59 23:59 23:59 Intake Total 320 / 320 Output Total 700 / 700 1130 / 1130 Balance -700 / -700 -810 / -810 General: Alert and No acute distress HEENT: Atraumatic and EOMI Neuro: Alert, Focal Deficits and Oriented Times 3 Cardiovascular: Regular rate Respiratory: Breath sounds nml and Other (Breath sounds Diminished Bilaterally, pt on HFNC) Abdomen: Normal bowel sounds, No tenderness and No masses Results Results: Laboratory Results WBC 7.8 x10^3/uL (4.8-10.8) 07/05/24 04:10 RBC 3.68 10^6/uL (4.70-6.10) L 07/05/24 04:10 Hgb 11.4 g/dL (14.0-18.0) L 07/05/24 04:10 Hct 38.8 % (42.0-52.0) L 07/05/24 04:10 MCV 105.4 fL (80.0-94.0) H 07/05/24 04:10 MCH 31.0 pg (27.0-31.0) 07/05/24 04:10 MCHC 29.4 g/dL (32.0-36.0) L 07/05/24 04:10 RDW 14.6 % (12.0-15.0) 07/05/24 04:10 Plt Count 174 10^3/uL (130-450) 07/05/24 04:10 MPV 11.3 fL (7.4-11.4) 07/05/24 04:10 Neut # (Auto) 6.7 10^3/uL (1.5-6.6) H 07/05/24 04:10 Lymph # (Auto) 0.9 10^3/uL (1.5-3.5) L 07/05/24 04:10 [place] # (Auto) 0.2 10^3/uL (0.0-1.0) 07/05/24 04:10 Eos # (Auto) 0.0 10^3/uL (0.0-0.7) 07/05/24 04:10 Baso # (Auto) 0.0 10^3/uL (0.0-0.1) 07/05/24 04:10 Absolute Nucleated RBC 0.00 x10^3/uL 07/05/24 04:10 Nucleated RBC % 0.0 /100WBC 07/05/24 04:10 PT 15.4 secs (9.9-12.6) H 07/04/24 19:30 INR 1.4 (0.8-1.2) H 07/04/24 19:30 VBG pH 7.313 (7.31-7.41) 07/04/24 19:36 VBG pCO2 74.8 mmHg (41-51) H 07/04/24 19:36 VBG pO2 34.0 mmHg (25-47) 07/04/24 19:36 VBG HCO3 38.3 mmol/L (23-28) H 07/04/24 19:36 VBG Total CO2 40.6 mmol/L (24-29) H 07/04/24 19:36 VBG O2 Saturation 51.0 % (60-80) L 07/04/24 19:36 VBG Base Excess 11.9 mmol/L (-2 - +2) H 07/04/24 19:36 Sodium 143 mmol/L (135-145) 07/05/24 04:10 Potassium 4.4 mmol/L (3.5-4.5) 07/05/24 04:10 Chloride 103 mmol/L (101-111) 07/05/24 04:10 Carbon Dioxide 36 mmol/L (21-32) H 07/05/24 04:10 Anion Gap 4.0 (6-13) L 07/05/24 04:10 BUN 24 mg/dL (6-20) H 07/05/24 04:10 Creatinine 1.3 mg/dL (0.6-1.3) 07/05/24 04:10 Estimated GFR (MDRD) 52 (>89) L 07/05/24 04:10 Glucose 120 mg/dL (74-104) H 07/05/24 04:10 Calcium 9.1 mg/dL (8.5-10.3) 07/05/24 04:10 Total Bilirubin 0.5 mg/dL (0.2-1.0) 07/04/24 19:30 AST 16 IU/L (10-42) 07/04/24 19:30 ALT 14 IU/L (10-60) 07/04/24 19:30 Alkaline Phosphatase 75 IU/L (42-121) 07/04/24 19:30 Troponin I High Sens 30.3 ng/L (2.3-19.7) H* 07/04/24 19:30 B-Natriuretic Peptide 260 pg/mL (5-100) H 07/04/24 19:30 Total Protein 6.1 g/dL (6.4-8.9) L 07/04/24 19:30 Albumin 3.8 g/dL (3.2-5.5) 07/04/24 19: Globulin 2.3 g/dL (2.1-4.2) 07/04/24 19: Albumin/Globulin Ratio 1.7 (1.0-2.2) 07/04/24 19:30 Lipase 16 U/L (11-82) 07/04/24 19:30 Procalcitonin Immunoas < 0.05 ng/mL (<0.5) 07/04/24 19:30 Urine Color STRAW 07/04/24 20:30 Urine Clarity CLEAR (CLEAR) 07/04/24 20:30 Urine pH 5.5 PH (5.0-7.5) 07/04/24 20:30 Ur Specific [place] 1.020 (1.002-1.030) 07/04/24 20:30 Urine Protein TRACE mg/dL (NEGATIVE) 07/04/24 20:30 Urine Glucose (UA) NEGATIVE mg/dL (NEGATIVE) 07/04/24 20:30 Urine Ketones NEGATIVE mg/dL (NEGATIVE) 07/04/24 20:30 Urine Occult Blood NEGATIVE (NEGATIVE) 07/04/24 20:30 Urine Nitrite NEGATIVE (NEGATIVE) 07/04/24 20:30 Urine Bilirubin NEGATIVE (NEGATIVE) 07/04/24 20:30 Urine Urobilinogen 0.2 (NORMAL) E.U./dL (NORMAL) 07/04/24 20:30 Ur Leukocyte Esterase NEGATIVE (NEGATIVE) 07/04/24 20:30 Ur Microscopic Review NOT INDICATED 07/04/24 20:30 Urine Culture Comments NOT INDICATED 07/04/24 20:30 Nasal Adenovirus (PCR) NOT DETECTED 07/04/24 23:46 Nasal B. parapertussis DNA (PCR) NOT DETECTED 07/04/24 23:46 Nasal Coronavir 229E PCR NOT DETECTED 07/04/24 23:46 Nasal Coronavir HKU1 PCR NOT DETECTED 07/04/24 23:46 Nasal Coronavir NL63 PCR NOT DETECTED 07/04/24 23:46 Nasal Coronavir OC43 PCR NOT DETECTED 07/04/24 23:46 Nasal Enterovir/Rhinovir PCR NOT DETECTED 07/04/24 23:46 Nasal Influenza B PCR NOT DETECTED 07/04/24 23:46 Nasal Influenza A PCR NOT DETECTED 07/04/24 23:46 Nasal Parainfluen 1 PCR NOT DETECTED 07/04/24 23:46 Nasal Parainfluen 2 PCR NOT DETECTED 07/04/24 23:46 Nasal Parainfluen 3 PCR NOT DETECTED 07/04/24 23:46 Nasal Parainfluen 4 PCR NOT DETECTED 07/04/24 23:46 Nasal RSV (PCR) NOT DETECTED 07/04/24 23:46 Nasal Screen MRSA (PCR) NEGATIVE (NEGATIVE) 07/05/24 00:46 Nasal B.pertussis DNA PCR NOT DETECTED 07/04/24 23:46 Nasal C.pneumoniae (PCR) NOT DETECTED 07/04/24 23:46 Juve Human Metapneumo PCR NOT DETECTED 07/04/24 23:46 Nasal M.pneumoniae (PCR) NOT DETECTED 07/04/24 23:46 Nasal SARS-CoV-2 (PCR) NOT DETECTED 07/04/24 23:46 ABX Reporting Has patient been on IV antibiotics over the past 48 hours?: Yes Current Medications Current Medications Current Medications: Current Medications Generic Name Dose Route Start Last Admin Trade Name Freq PRN Reason Stop Dose Admin Acetaminophen 650 mg 07/04/24 22:45 Acetaminophen 325 Mg Tablet PO Q4HR PRN Pain 1 to 4, or Fever Hydrocodone Bitart/Acetaminophen 1 tab 07/04/24 22:45 Hydrocod/Acetam 10 Mg/325 Mg Tablet PO Q4HR PRN Pain 8 to 10 Azithromycin 500 mg 07/04/24 22:45 07/05/24 08:21 Azithromycin 250 Mg Tablet PO 07/06/24 09:01 500 mg DAILY SARATH Administration Bisacodyl 5 mg 07/05/24 17:19 Bisacodyl 5 Mg Tablet PO DAILY PRN constipation Dexamethasone 6 mg 07/04/24 22:45 07/05/24 17:04 Dexamethasone 4 Mg Tablet PO 6 mg BIDWM SARATH Administration Enoxaparin Sodium 40 mg 07/05/24 09:00 07/05/24 08:21 Enoxaparin 40 Mg/0.4 Ml Syringe SUBQ 40 mg DAILY SARATH Administration Furosemide 40 mg 07/05/24 09:00 07/05/24 08:21 Furosemide 40 Mg/4 Ml Vial IVP 40 mg DAILY SARATH Administration Gabapentin 300 mg 07/05/24 23:00 Gabapentin 300 Mg Capsule PO 2300 [facility] Gabapentin 600 mg 07/05/24 20:00 Gabapentin 300 Mg Capsule PO 2000 [facility] Ondansetron HCl 4 mg 07/04/24 22:45 Ondansetron Odt 4 Mg Tablet TL Q6HR PRN Nausea / Vomiting Ondansetron HCl 4 mg 07/04/24 22:45 Ondansetron 4 Mg/2 Ml Vial IVP Q6HR PRN Nausea / Vomiting Pantoprazole Sodium 40 mg 07/06/24 07:00 Pantoprazole 40 Mg Tablet PO QDAC SARATH Patient Own Med ( 3 each 07/06/24 09:00 Pirfenidone 267mg) PO TID [facility] Sodium Chloride 10 ml 07/04/24 22:45 Sodium Chloride Flush 0.9% 10 Ml Syringe IVP PRN PRN NEEDED PER PROVIDER ORDERS Sodium Chloride 10 ml 07/05/24 01:00 07/05/24 17:05 Sodium Chloride Flush 0.9% 10 Ml Syringe IVP 10 ml 0100,0900,1700 SARATH Administration
[2024-07-05] MEDS ORDERED: GABAPENTIN 300 MG CAPSULE PO SCH ×2 (20:00→22:00)
[2024-07-06 04:59] LABS: BASOPHILS % (AUTO) 0.1 %; EOSINOPHILS % (AUTO) 0.1 %; HCT - HEMATOCRIT 39.8 % (42.0-52.0); HGB - HEMOGLOBIN 11.9 g/dL (14.0-18.0); LYMPHOCYTES # (AUTO) 1.3 10^3/uL (1.5-3.5); LYMPHOCYTES % (AUTO) 15.7 %; MEAN CORPUSCULAR HEMOGLOBIN 31.2 pg (27.0-31.0); MEAN CORPUSCULAR HGB CONC 29.9 g/dL (32.0-36.0); MEAN CORPUSCULAR VOLUME 104.5 fL (80.0-94.0); MEAN PLATELET VOLUME 11.4 fL (7.4-11.4); MONOCYTES # (AUTO) 0.5 10^3/uL (0.0-1.0); MONOCYTES % (AUTO) 6.6 %; NEUTROPHILS # (AUTO) 6.3 10^3/uL (1.5-6.6); NEUTROPHILS % (AUTO) 77.1 %; PLT - PLATELET COUNT 186 10^3/uL (130-450); RED BLOOD COUNT 3.81 10^6/uL (4.70-6.10); RED CELL DISTRIBUTION WIDTH 14.6 % (12.0-15.0); WHITE BLOOD COUNT 8.1 x10^3/uL (4.8-10.8)
[2024-07-06 05:37] LABS: CALCIUM 9.3 mg/dL (8.5-10.3); CREATININE 1.3 mg/dL (0.6-1.3); POTASSIUM 5.1 mmol/L (3.5-4.5)
[2024-07-06] MEDS: PANTOPRAZOLE 40 MG TABLET PO SCH (06:29)
--- NOTE | 2024-07-06 09:01 | PROVIDER PROGRESS NOTE ---
<Statement entered by Cj Posada MD - 07/06/24 17:06> I have seen the patient independently and reviewed the note provided the physician stores assistant Agree with the assessment, management and plan. The addition however is that the patient has since met with the hospice team and has agreed to move forward with hospice. Plan is for admission to hospice and discharge on Thursday. Subjective Prog Note Date Prog Note Date: 07/06/24 Prog Note Time: 08:58 Subjective Pt reports feeling: No change Subjective: Patient is an 88 year old male with a history of pulmonary fibrosis who was admitted after experiencing a syncopal episode while walking back from the bathroom at home. A CTA chest in the ED showed a possible superimposed pneumonia, for which he completed a course of azithromycin. Patient was laying in bed comfortably when I arrived to speak with him. He was on nasal oxygen 11 L via oxymizer and his sat rates were in the 90s. Patient stated he had slept well and had no immediate concerns. He denied feeling short of breath or dizzy, no coughing. He said his appetite is good and he hasn't had any nausea, vomiting or diarrhea. He has a urinary catheter in place. Patient lives at home with his , he has two daughters one of whom lives on [facility] and the other lives in [facility]. Patient does not ambulate on his own other than to walk to the bathroom. He states his ability to get enough air decreases significantly whenever he moves around much. Patient spoke with the hospice team yesterday but is still making up his mind as to whether he wants to transition to hospice care or not. He is expecting his family to come visit with him today and they will discuss the matter further. Current Medications Current Medications Current Medications: Current Medications Generic Name Dose Route Start Last Admin Trade Name Freq PRN Reason Stop Dose Admin Acetaminophen 650 mg 07/04/24 22:45 Acetaminophen 325 Mg Tablet PO Q4HR PRN Pain 1 to 4, or Fever Hydrocodone Bitart/Acetaminophen 1 tab 07/04/24 22:45 Hydrocod/Acetam 10 Mg/325 Mg Tablet PO Q4HR PRN Pain 8 to 10 Azithromycin 500 mg 07/04/24 22:45 07/05/24 08:21 Azithromycin 250 Mg Tablet PO 07/06/24 09:01 500 mg DAILY SARATH Administration Bisacodyl 5 mg 07/05/24 17:19 Bisacodyl 5 Mg Tablet PO DAILY PRN constipation Dexamethasone 6 mg 07/04/24 22:45 07/05/24 17:04 Dexamethasone 4 Mg Tablet PO 6 mg BIDWM SARATH Administration Enoxaparin Sodium 40 mg 07/05/24 09:00 07/05/24 08:21 Enoxaparin 40 Mg/0.4 Ml Syringe SUBQ 40 mg DAILY SARATH Administration Furosemide 40 mg 07/05/24 09:00 07/05/24 08:21 Furosemide 40 Mg/4 Ml Vial IVP 40 mg DAILY SARATH Administration Gabapentin 300 mg 07/05/24 23:00 07/05/24 23:02 Gabapentin 300 Mg Capsule PO 300 mg 2300 SARATH Administration Gabapentin 600 mg 07/05/24 20:00 07/05/24 19:25 Gabapentin 300 Mg Capsule PO 600 mg 2000 SARATH Administration Ondansetron HCl 4 mg 07/04/24 22:45 Ondansetron Odt 4 Mg Tablet TL Q6HR PRN Nausea / Vomiting Ondansetron HCl 4 mg 07/04/24 22:45 Ondansetron 4 Mg/2 Ml Vial IVP Q6HR PRN Nausea / Vomiting Pantoprazole Sodium 40 mg 07/06/24 07:00 07/06/24 06:29 Pantoprazole 40 Mg Tablet PO 40 mg QDAC SARATH Administration Patient Own Med ( 3 each 07/06/24 09:00 Pirfenidone 267mg) PO TID SARATH Sodium Chloride 10 ml 07/04/24 22:45 Sodium Chloride Flush 0.9% 10 Ml Syringe IVP PRN PRN NEEDED PER PROVIDER ORDERS Sodium Chloride 10 ml 07/05/24 01:00 07/05/24 23:02 Sodium Chloride Flush 0.9% 10 Ml Syringe IVP 10 ml 0100,0900,1700 SARATH Administration Objective Vital Signs/Intake & Output Reviewed Vital Signs: Yes Vital Signs: Vital Signs x48h Pulse Resp BP BP Pulse Ox O2 Flow Rate 07/06/24 08:11 11 07/06/24 08:00 57 L 20 125/67 95 11 07/06/24 07:00 51 L 12 108/89 95 13 07/06/24 06:00 62 24 110/67 95 07/06/24 05:00 75 26 H 113/75 93 13 07/06/24 04:00 58 L 16 117/66 94 13 07/06/24 03:00 77 30 H 142/87 H 93 13 07/06/24 02:30 13 07/06/24 02:00 58 L 16 112/66 96 15 07/06/24 01:00 76 28 H 111/75 96 15 Intake & Output: Intake & Output 07/03/24 07/04/24 07/05/24 07/06/24 23:59 23:59 23:59 23:59 Intake Total 320 / 320 Output Total 700 / 700 1185 / 1185 Balance -700 / -700 -865 / -865 - Weight (kg) 113.5 kg Objective General Appearance: positive No acute distress Eyes Bilateral: positive Normal inspection ENT: positive ENT inspection nml Neck: positive Nml inspection Respiratory: positive Wheezes, Rales and Rhonchi Cardiovascular: positive Regular rate & rhythm Abdomen: positive Non-tender Skin: positive Color nml and Dry Extremities: positive Non-tender and Pedal edema Neurologic/Psychiatric: positive Oriented x3 and Sensation nml Lab Results 07/06/24 04:27 07/06/24 04:27 Other Labs: Lab Results x24hrs 07/06/24 Range/Units 04:27 WBC 8.1 (4.8-10.8) x10^3/uL RBC 3.81 L (4.70-6.10) 10^6/uL Hgb 11.9 L (14.0-18.0) g/dL Hct 39.8 L (42.0-52.0) % MCV 104.5 H (80.0-94.0) fL MCH 31.2 H (27.0-31.0) pg MCHC 29.9 L (32.0-36.0) g/dL RDW 14.6 (12.0-15.0) % Plt Count 186 (130-450) 10^3/uL MPV 11.4 (7.4-11.4) fL Neut # (Auto) 6.3 (1.5-6.6) 10^3/uL Lymph # (Auto) 1.3 L (1.5-3.5) 10^3/uL [place] # (Auto) 0.5 (0.0-1.0) 10^3/uL Eos # (Auto) 0.0 (0.0-0.7) 10^3/uL Baso # (Auto) 0.0 (0.0-0.1) 10^3/uL Absolute Nucleated RBC 0.00 x10^3/uL Nucleated RBC % 0.0 /100WBC Sodium 143 (135-145) mmol/L Potassium 5.1 H (3.5-4.5) mmol/L Chloride 101 (101-111) mmol/L Carbon Dioxide 39 H* (21-32) mmol/L Anion Gap 3.0 L (6-13) BUN 28 H (6-20) mg/dL Creatinine 1.3 (0.6-1.3) mg/dL Estimated GFR (MDRD) 52 L (>89) Glucose 131 H (74-104) mg/dL Calcium 9.3 (8.5-10.3) mg/dL Assessment/Plan Problem List (1) CHF (congestive heart failure): Impression: Patient met criteria due to dyspnea and syncope. He had an echocardiogram on 07/05/24, the report has yet to be released. He is on IV furosemide 40 mg daily. Will continue to monitor fluid I/O. He does have ongoing bilateral lower extremity edema. Qualifiers: Heart failure chronicity: unspecified Heart failure type: unspecified Qualified Code(s): I50.9 - Heart failure, unspecified (2) Pulmonary fibrosis: Impression: Chronic problem. Patient is on home oxygen, 10 L via nasal cannula while at rest. When he ambulates, he uses a second nasal cannula also running at 10 L for a total of 20 L. Patient is aware that he will continue to decline and has been meeting with the hospice team regarding admission to hospice care. He remains undecided at this time. (3) Syncopal episodes: Impression: Likely secondary to hypoxia. Patient bedbound on continuous oxygen. He is unable to oxygenate well while ambulating. Qualifiers: Syncope type: unspecified Qualified Code(s): R55 - Syncope and collapse (4) GERD (gastroesophageal reflux disease): Impression: Chronic ongoing problem. Managed by patient's PCP
[2024-07-06] MEDS: PIRFENIDONE 267 MG PO SCH (09:44)
[2024-07-07 06:02] LABS: HCT - HEMATOCRIT 38.8 % (42.0-52.0); HGB - HEMOGLOBIN 11.7 g/dL (14.0-18.0); LYMPHOCYTES # (AUTO) 1.4 10^3/uL (1.5-3.5); LYMPHOCYTES % (AUTO) 19.1 %; MEAN CORPUSCULAR HEMOGLOBIN 31.5 pg (27.0-31.0); MEAN CORPUSCULAR HGB CONC 30.2 g/dL (32.0-36.0); MEAN CORPUSCULAR VOLUME 104.3 fL (80.0-94.0); MEAN PLATELET VOLUME 10.8 fL (7.4-11.4); MONOCYTES # (AUTO) 0.5 10^3/uL (0.0-1.0); MONOCYTES % (AUTO) 6.5 %; NEUTROPHILS # (AUTO) 5.3 10^3/uL (1.5-6.6); PLT - PLATELET COUNT 183 10^3/uL (130-450); RED BLOOD COUNT 3.72 10^6/uL (4.70-6.10); RED CELL DISTRIBUTION WIDTH 14.6 % (12.0-15.0); WHITE BLOOD COUNT 7.2 x10^3/uL (4.8-10.8)
[2024-07-07 06:20] LABS: CALCIUM 9.1 mg/dL (8.5-10.3); CREATININE 1.3 mg/dL (0.6-1.3); POTASSIUM 4.8 mmol/L (3.5-4.5)
[2024-07-07] MEDS ORDERED: SODIUM CHLORIDE FLUSH 0.9% 10 ML SYRINGE IVP PRN (09:44)
--- NOTE | 2024-07-07 13:23 | PROVIDER PROGRESS NOTE ---
<Statement entered by Cj Posada MD - 07/07/24 18:04> Seen patient independently and reviewed the note from the PA student and agree with the assessment and plan. Subjective Prog Note Date Prog Note Date: 07/07/24 Prog Note Time: 13:16 Subjective Pt reports feeling: No change Subjective: Patient is an 88 year old male with a history of pulmonary fibrosis, who is mostly bedbound and on continuous oxygen. Patient's base level oxygen usage is 10 L via nasal cannula. He is able to ambulate to and from the bathroom if he uses a second nasal cannula also running at 10 L, for a total of 20 L of oxygen during exertion. Patient met with hospice yesterday and will be discharged tomorrow with the intention of being admitted into hospice care. He was sitting up comfortably in bed watching TV at the time I saw him and had no new complaints. Current Medications Current Medications Current Medications: Current Medications Generic Name Dose Route Start Last Admin Trade Name Freq PRN Reason Stop Dose Admin Acetaminophen 650 mg 07/04/24 22:45 Acetaminophen 325 Mg Tablet PO Q4HR PRN Pain 1 to 4, or Fever Hydrocodone Bitart/Acetaminophen 1 tab 07/04/24 22:45 Hydrocod/Acetam 10 Mg/325 Mg Tablet PO Q4HR PRN Pain 8 to 10 Bisacodyl 5 mg 07/05/24 17:19 Bisacodyl 5 Mg Tablet PO DAILY PRN constipation Dexamethasone 6 mg 07/04/24 22:45 07/07/24 08:05 Dexamethasone 4 Mg Tablet PO 6 mg BIDWM SARATH Administration Enoxaparin Sodium 40 mg 07/05/24 09:00 07/07/24 08:05 Enoxaparin 40 Mg/0.4 Ml Syringe SUBQ 40 mg DAILY SARATH Administration Furosemide 40 mg 07/05/24 09:00 07/07/24 08:05 Furosemide 40 Mg/4 Ml Vial IVP 40 mg DAILY SARATH Administration Gabapentin 300 mg 07/05/24 23:00 07/06/24 22:05 Gabapentin 300 Mg Capsule PO 300 mg 2300 SARATH Administration Gabapentin 600 mg 07/05/24 20:00 07/06/24 19:00 Gabapentin 300 Mg Capsule PO 600 mg 2000 SARATH Administration Ondansetron HCl 4 mg 07/04/24 22:45 Ondansetron Odt 4 Mg Tablet TL Q6HR PRN Nausea / Vomiting Ondansetron HCl 4 mg 07/04/24 22:45 Ondansetron 4 Mg/2 Ml Vial IVP Q6HR PRN Nausea / Vomiting Pantoprazole Sodium 40 mg 07/06/24 07:00 07/07/24 06:04 Pantoprazole 40 Mg Tablet PO 40 mg QDAC SARATH Administration Sodium Chloride 10 ml 07/04/24 22:45 Sodium Chloride Flush 0.9% 10 Ml Syringe IVP PRN PRN NEEDED PER PROVIDER ORDERS Sodium Chloride 10 ml 07/05/24 01:00 07/07/24 08:05 Sodium Chloride Flush 0.9% 10 Ml Syringe IVP 10 ml 0100,0900,1700 SARATH Administration Sodium Chloride 10 ml 07/07/24 09:44 Sodium Chloride Flush 0.9% 10 Ml Syringe IVP PRN PRN NEEDED PER PROVIDER ORDERS Sodium Chloride 10 ml 07/07/24 17:00 Sodium Chloride Flush 0.9% 10 Ml Syringe IVP 0100,0900,1700 [facility] Objective Vital Signs/Intake & Output Vital Signs: Vital Signs x48h Temp Pulse Resp BP Pulse Ox O2 Flow Rate 07/07/24 08:15 13 07/07/24 08:11 36.4 C L 65 20 132/79 H 96 11 Intake & Output: Intake & Output 07/04/24 07/05/24 07/06/24 07/07/24 23:59 23:59 23:59 23:59 Intake Total 320 / 320 900 / 900 200 / 200 Output Total 700 / 700 1185 / 1185 1695 / 1695 175 / 175 Balance -700 / -700 -865 / -865 -795 / -795 Weight (kg) 113.5 kg Objective General Appearance: positive No acute distress Eyes Bilateral: positive Normal inspection Neck: positive Nml inspection Respiratory: positive Wheezes, Rales and Rhonchi Cardiovascular: positive Regular rate & rhythm Abdomen: positive Non-tender Skin: positive Color nml and Dry Extremities: positive Non-tender and Pedal edema Neurologic/Psychiatric: positive Oriented x3 Lab Results 07/07/24 05:53 07/07/24 05:53 Other Labs: Lab Results x24hrs 07/07/24 Range/Units 05:53 WBC 7.2 (4.8-10.8) x10^3/uL RBC 3.72 L (4.70-6.10) 10^6/uL Hgb 11.7 L (14.0-18.0) g/dL Hct 38.8 L (42.0-52.0) % MCV 104.3 H (80.0-94.0) fL MCH 31.5 H (27.0-31.0) pg MCHC 30.2 L (32.0-36.0) g/dL RDW 14.6 (12.0-15.0) % Plt Count 183 (130-450) 10^3/uL MPV 10.8 (7.4-11.4) fL Neut # (Auto) 5.3 (1.5-6.6) 10^3/uL Lymph # (Auto) 1.4 L (1.5-3.5) 10^3/uL [place] # (Auto) 0.5 (0.0-1.0) 10^3/uL Eos # (Auto) 0.0 (0.0-0.7) 10^3/uL Baso # (Auto) 0.0 (0.0-0.1) 10^3/uL Absolute Nucleated RBC 0.00 x10^3/uL Nucleated RBC % 0.0 /100WBC Sodium 142 (135-145) mmol/L Potassium 4.8 H (3.5-4.5) mmol/L Chloride 100 L (101-111) mmol/L Carbon Dioxide 39 H* (21-32) mmol/L Anion Gap 3.0 L (6-13) BUN 33 H (6-20) mg/dL Creatinine 1.3 (0.6-1.3) mg/dL Estimated GFR (MDRD) 52 L (>89) Glucose 129 H (74-104) mg/dL Calcium 9.1 (8.5-10.3) mg/dL Assessment/Plan Problem List (1) CHF (congestive heart failure): Impression: Patient met criteria due to dyspnea and syncope. He had an echocardiogram on 07/05/24, the report has yet to be released. He is on IV furosemide 40 mg daily. Will continue to monitor fluid I/O. He does have ongoing bilateral lower extremity edema. Qualifiers: Heart failure chronicity: unspecified Heart failure type: unspecified Qualified Code(s): I50.9 - Heart failure, unspecified (2) Pulmonary fibrosis: Impression: Chronic problem. Patient is on home oxygen, 10 L via nasal cannula while at rest. When he ambulates, he uses a second nasal cannula also running at 10 L for a total of 20 L. Patient met again with the hospice team yesterday and he and his family are currently on board to be admitted. Hospice was delivering equipment to the patient's home today. (3) Syncopal episodes: Impression: Likely secondary to hypoxia. Patient bedbound on continuous oxygen. He is unable to oxygenate well while ambulating. Qualifiers: Syncope type: unspecified Qualified Code(s): R55 - Syncope and collapse (4) GERD (gastroesophageal reflux disease): Impression: Chronic ongoing problem. Managed by patient's PCP.
[2024-07-07] MEDS ORDERED: BACITRACIN ZINC OINT 1 PACKET TOP PRN (14:12)
[2024-07-07] MEDS ORDERED: ZINC OXIDE 20% OINT 30 GM TUBE TOP PRN (14:53)
[2024-07-07] MEDS: SODIUM CHLORIDE FLUSH 0.9% 10 ML SYRINGE IVP SCH (17:25)
[2024-07-07] MEDS: SODIUM CHLORIDE 0.65% NASAL SPRAY NAS PRN (17:33)
[2024-07-08 06:04] LABS: EOSINOPHILS % (AUTO) 0.1 %; HCT - HEMATOCRIT 39.6 % (42.0-52.0); HGB - HEMOGLOBIN 12.1 g/dL (14.0-18.0); LYMPHOCYTES # (AUTO) 1.4 10^3/uL (1.5-3.5); LYMPHOCYTES % (AUTO) 17.4 %; MEAN CORPUSCULAR HEMOGLOBIN 31.8 pg (27.0-31.0); MEAN CORPUSCULAR HGB CONC 30.6 g/dL (32.0-36.0); MEAN CORPUSCULAR VOLUME 104.2 fL (80.0-94.0); MEAN PLATELET VOLUME 11.2 fL (7.4-11.4); MONOCYTES # (AUTO) 0.6 10^3/uL (0.0-1.0); MONOCYTES % (AUTO) 8.2 %; NEUTROPHILS # (AUTO) 5.8 10^3/uL (1.5-6.6); PLT - PLATELET COUNT 182 10^3/uL (130-450); RED CELL DISTRIBUTION WIDTH 14.5 % (12.0-15.0); WHITE BLOOD COUNT 7.8 x10^3/uL (4.8-10.8)
[2024-07-08 07:00] LABS: CREATININE 1.4 mg/dL (0.6-1.3)
[2024-07-08 08:26] VITALS: BP 135/85; TEMP 97.9; O2SAT 94
--- NOTE | 2024-07-11 18:36 | Discharge Summary ---
"Discharge Summary Admit Date: 07/04/24 Discharge Date: 07/07/24 Discharging Provider: Cj Posada MD Code Status: Do Not Attempt Resuscitation Discharge Facility Name: [facility] DIAGNOSES Discharge Diagnoses with Status of Each Condition: CHF - Stable Pulmonary Fibrosis - Unchanged, Gaurded GERD - Stable HPI History of Present Illness: 88-year-old male history of pulmonary fibrosis on 10 L to 20 L of oxygen at home came in with dyspnea. He experienced a syncopal episode after walking back from the bathroom. He was found to be 58% on room air on EMS arrival. He has been experiencing increased swelling in his legs for the past week. He denies fever, chills, chest pain. In the ER, he was noted to have a troponin of 30. CTA chest was performed which showed pulmonary fibrosis with possible superimposed pneumonia as well as cardiomegaly with signs of right heart strain, possible pulmonary artery hypertension, bilateral pleural effusions. He is aware of his poor prognosis, and patient centered discussion was held between the patient and ER physician regarding transfer to higher level of care. The decision was made to not transfer him for cardiology eval, and that he would like to be managed as best as possible at this location. Hospitalist was contacted for heart failure exacerbation with dyspnea as well as for syncope CONSULTS | PROCEDURES Consultations: Hospice Procedures: None HOSPITAL COURSE Hospital Course: (1) Pulmonary fibrosis: Impression: Chronic problem. Patient is on home oxygen, 10 L via nasal cannula while at rest. When he ambulates, he uses a second nasal cannula also running at 10 L for a total of 20 L. Patient met again with the hospice team yesterday and he and his family are currently on board to be admitted. Hospice was delivering equipment to the patient's home today. (2) CHF (congestive heart failure): Impression: Patient met criteria due to dyspnea and syncope. He had an echocardiogram on 07/05/24, the report has yet to be released. Qualifiers: Heart failure chronicity: unspecified Heart failure type: unspecified Qualified Code(s): I50.9 - Heart failure, unspecified (3) Syncopal episodes: Impression: Likely secondary to hypoxia. Patient bedbound on continuous oxygen. He is unable to oxygenate well while ambulating. Going home on hospice Qualifiers: Syncope type: unspecified Qualified Code(s): R55 - Syncope and collapse (4) GERD (gastroesophageal reflux disease): Impression: Chronic ongoing problem. Managed by patient's PCP. ALLERGIES Allergies Allergy/AdvReac Type Severity Reaction Status Date / Time No Known Drug Allergies Allergy Verified 07/04/24 19:33 MEDICATIONS Ambulatory Orders Medication Instructions Recorded Confirmed gabapentin 300 mg capsule See Rx Instructions .Route .COMPLEX 12/23/16 07/05/24 pirfenidone 267 mg capsule 801 mg PO TID 06/13/24 07/05/24 bisacodyl 1 tab PO PRN PRN constipation 07/04/24 07/05/24 omeprazole 20 mg capsule,delayed 20 mg PO DAILY PRN reflux 07/04/24 07/04/24 release prednisone 20 mg tablet 20 mg PO ONCE PRN shortness of 07/04/24 07/04/24 breath PHYSICAL EXAM AT DISCHARGE General Appearance: positive No acute distress Respiratory: positive Other (Diminished breath sounds) Cardiovascular: positive Regular rate & rhythm Skin: positive Color nml Extremities: positive Nml appearance Neurologic/Psychiatric: positive Oriented x3 and CN's nml (2-12) LABS 07/08/24 05:56 07/08/24 05:56 DIAGNOSTIC IMAGING Diagnostic Imaging Results: Final report reviewed SEPSIS Current Stage of Sepsis: Ruled out TIME SPENT Time Spent in Discharge (Minutes): 32 Discharge Plan Discharge Patient Disposition: 50 Hospice/Home DC/Xfer Condition: Fair Prescriptions: Continued gabapentin 300 MG capsule See Rx Instructions .ROUTE .COMPLEX Patient Comments: Takes 2 in the afternoon, 1 before bedtime. Rx Instructions: 2 QPM AND 1 HS; pirfenidone 267 mg capsule 801 mg PO TID Patient Comments: 3 tablets, 3 times daily prednisone 20 mg tablet 20 mg PO ONCE PRN (Reason: shortness of breath) bisacodyl [Dulcolax (bisacodyl)] 1 tab PO PRN PRN (Reason: constipation) omeprazole 20 mg capsule,delayed release(DR/EC) 20 mg PO DAILY PRN (Reason: reflux) Activity Restrictions: Activity as Tolerated Diet: Regular Print Language: Romanian Patient Instructions: Hospice Start Stand Alone Forms: PCP List"
== END 2024-07-08 09:50 | disposition hospice, home (50) | DRG 293 ==
LOC: ICU 19:17 → ED 19:17 → ICU 23:10 → MS2 07-06 15:04
PROVIDERS: ADMIT Nurse Practitioner Acute Care; ATTEND Family Medicine Sports Medicine
DX: I50.9 Heart failure, unspecified; Z79.899 Other long term (current) drug therapy; Z66 Do not resuscitate; Z20.828 Contact with and (suspected) exposure to other viral communicable diseases; Z20.822 Contact with and (suspected) exposure to COVID-19; Z74.01 Bed confinement status; J96.21 Acute and chronic respiratory failure with hypoxia; G93.41 Metabolic encephalopathy; K21.9 Gastro-esophageal reflux disease without esophagitis; R55 Syncope and collapse; I48.92 Unspecified atrial flutter; I45.10 Unspecified right bundle-branch block; G93.40 Encephalopathy, unspecified; Z20.818 Contact with and (suspected) exposure to other bacterial communicable diseases; I07.1 Rheumatic tricuspid insufficiency; J84.10 Pulmonary fibrosis, unspecified; I27.20 Pulmonary hypertension, unspecified